=== PATIENT | female | born 1945 | race Caucasian/White ===

== ENCOUNTER 2020-10-23 16:59 | Emergency (ER) | payer MEDICARE, OTHER ==
[~2020-10-23] VITALS: Ht 154.9 cm; Wt 62.1 kg
--- NOTE | 2020-10-23 17:17 | NUR ---
at bedside for assessment
[2020-10-23 17:43] LABS: BASOPHILS % (AUTO) 0.6 % (0.0-2.0); EOSINOPHILS % (AUTO) 0.4 % (0.0-7.0); HEMATOCRIT 36.9 % (31.2-41.9); HEMOGLOBIN 12.4 g/dL (10.9-14.3); LYMPHOCYTES # (AUTO) 1.4 K/uL (20.0-40.0); LYMPHOCYTES % (AUTO) 17.5 % (20.5-51.5); MEAN CORPUSCULAR HEMOGLOBIN 31.3 uug (24.7-32.8); MEAN CORPUSCULAR HGB CONC 34 g/dL (32.3-35.6); MEAN CORPUSCULAR VOLUME 93.4 fL (75.5-95.3); MONOCYTES # (AUTO) 0.5 K/uL (2.0-10.0); NEUTROPHILS # (AUTO) 6.1 K/uL (1.8-8.9); NEUTROPHILS % (AUTO) 75.5 % (38.5-71.5); PLATELET COUNT (AUTO) 202 K/uL (179-408); RED BLOOD CELL COUNT(AUTO) 3.95 MIL/uL (3.63-4.92); WHITE BLOOD COUNT (AUTO) 8.1 K/uL (3.8-11.8)
[2020-10-23 17:53] LABS: BILIRUBIN,DIRECT 0.1 mg/dL (0.0-0.2); BILIRUBIN,TOTAL 0.4 mg/dL (0.2-1.0); CREATININE 0.7 mg/dL (0.6-1.3); TOTAL PROTEIN, SERUM 6.8 g/dL (6.4-8.2)
[2020-10-23] MEDS ORDERED: TDAP DIPH,PERTUSS,TET VAC/PF 0.5 ML DISP.SYRIN IM ONE ×2 (18:15→18:19)
[2020-10-23] MEDS ORDERED: FLEX PO (18:24)
[2020-10-23] MEDS ORDERED: METF-440 PO (18:24)
[2020-10-23] MEDS ORDERED: AMLO-212 PO (18:24)
[2020-10-23] MEDS ORDERED: ATOR20TA PO (18:24)
[2020-10-23] MEDS ORDERED: ATEN50TA PO (18:24)
[2020-10-23] MEDS ORDERED: CITRACAL CALCIUM PO (18:24)
[2020-10-23] MEDS ORDERED: OXCA150T5 GT (18:24)
[2020-10-23] MEDS ORDERED: LOSA25TA27 PO (18:24)
[2020-10-23] MEDS ORDERED: OMEG1CAP55 PO (18:24)
[2020-10-23] MEDS ORDERED: ASPI81TA31 PO (18:24)
--- NOTE | 2020-10-23 19:25 | NUR ---
WHEELCHAIR OFFERED TO PATIENT REFUSED.
--- NOTE | 2020-10-23 19:28 | NUR ---
Patient discharged to home in stable condition. Written and verbal after care instructions given. Patient verbalizes understanding of instructions. Stressed follow up or return to ER for worsening s/s.
[2020-10-23 19:35] VITALS: BP 133/71
== END 2020-10-23 19:39 | disposition home or self-care (01) ==
LOC: ER 17:24
DX: S02.2XXA Fracture of nasal bones, initial encounter for closed fracture (principal); W01.0XXA Fall on same level from slipping, tripping and stumbling without subsequent striking against object, initial encounter; Y93.H2 Activity, gardening and landscaping; Y92.038 Other place in apartment as the place of occurrence of the external cause; Z79.82 Long term (current) use of aspirin; Z79.899 Other long term (current) drug therapy; E11.9 Type 2 diabetes mellitus without complications; S60.419A Abrasion of unspecified finger, initial encounter
CPT/HCPCS: 36415; 70450; 70486; 72125; 85025; 90715; A4663